=== PATIENT | female | born 1995 | race Caucasian/White ===

== ENCOUNTER → 2017-05-25 | Outpatient (CLI) | payer BC ==
[2017-05-25 10:58] LABS: PLATELET COUNT, AUTOMATED 195 K/uL (150-450)
== END ==
LOC: LAB 10:28
PROVIDERS: ATTEND Internal Medicine Gastroenterology
DX: K92.1 Melena (principal); K62.89 Other specified diseases of anus and rectum; K59.00 Constipation, unspecified; R19.7 Diarrhea, unspecified; R42 Dizziness and giddiness
CPT/HCPCS: 36415; 82040; 82247; 82310; 82374; 82435; 82565; 82947; 84075; 84132; 84155; 84295; 84450; 84460; 84520; 85025

== ENCOUNTER → 2017-06-08 | Day surgery (SDC) | payer BC ==
[~2017-06-08] VITALS: Ht 170.2 cm; Wt 64.9 kg
[~2017-06-08] MED LIST: LIDOCAINE MPF 1% 5 ML VIAL ONE; LIDOCAINE/SOD BICARB 8.4% SYR ID ONE; LIDOCAINE/SOD BICARB 8.4% SYR ONE; NORE1TAB PO; NORMOSOL R SOLN(*) 1000 ML BAG 1,000 ML IV PRN; PROPOFOL EMUL(*) 10MG/ML 20 ML 20 ML ONE; PROPOFOL EMUL(*) 10MG/ML 20 ML 40 ML ONE
[2017-06-08 11:48] VITALS: BP 113/72
[2017-06-08 14:13] VITALS: BP 100/58
[2017-06-08 14:38] VITALS: BP 121/70
[2017-06-08 14:40] VITALS: BP 126/86
== END ==
LOC: OR 00:33
PROVIDERS: ATTEND Internal Medicine Gastroenterology
DX: K64.9 Unspecified hemorrhoids (principal)
CPT/HCPCS: 00811; 36415; 45380; 84702; 88305; J2001; J2704

== ENCOUNTER → 2018-04-07 | Outpatient (REF) | payer BC ==
[~2018-04-07] MED LIST changes: -LIDOCAINE MPF 1% 5 ML VIAL ONE; -LIDOCAINE/SOD BICARB 8.4% SYR ID ONE; -LIDOCAINE/SOD BICARB 8.4% SYR ONE; -NORMOSOL R SOLN(*) 1000 ML BAG 1,000 ML IV PRN; -PROPOFOL EMUL(*) 10MG/ML 20 ML 20 ML ONE; -PROPOFOL EMUL(*) 10MG/ML 20 ML 40 ML ONE
[2018-04-07 14:25] LABS: PLATELET COUNT, AUTOMATED 183 K/uL (150-450)
== END ==
PROVIDERS: ATTEND Nurse Practitioner Family
DX: R07.9 Chest pain, unspecified (principal)
CPT/HCPCS: 82040; 82247; 82310; 82374; 82435; 82565; 82947; 84075; 84132; 84155; 84295; 84450; 84460; 84484; 84520; 85025